=== PATIENT | female | born 1975 | race Caucasian/White ===

== ENCOUNTER 2017-03-17 20:14 | Emergency (ER) | payer BC ==
[2008-03-23 19:14] VITALS: BP 123/77
[~2017-03-17] VITALS: Ht 160 cm; Wt 56.8 kg
[~2017-03-17 20:14] MED LIST: AMOXICILLIN875 MG PO; BCP TD; PERCR 7.5 PO; TEGRETOL 1100 MG/TAB PO; TRIVORA-281 TAB PO; [UNRECOGNIZED DRUG - OTHER]
[2017-03-17 20:15] VITALS: TEMP 99.7
[2017-03-17 22:18] LABS: BASO # 0.1 (0.0-0.2); EOS # 0.5 (0.0-0.7); EOS % 5.1 % (0-4.0); GRAN # 4.7 (1.4-6.5); GRAN % 49.7 % (42.2-75.2); HEMATOCRIT 40.4 % (37.0-47.0); HEMOGLOBIN 13.9 g/dl (12.5-16.0); LYMPH # 3.6 (1.2-3.4); LYMPH % 38.2 % (20.0-51.0); MEAN CELL VOLUME 92 fl (80.0-100.0); MEAN CORPUSCULAR HEMOGLOBIN 32 pg (27.0-31.0); MEAN CORPUSCULAR HGB CONC 34 g/dl (33.0-37.0); MEAN PLATELET VOLUME 10.5 fl (7.4-10.4); MONO # 0.5 (0.1-0.6); MONO % 5.7 % (1.7-9.3); PLATELET COUNT 224 K/mm3 (130-400); RED BLOOD COUNT 4.38 M/mm3 (4.10-5.30); WHITE BLOOD COUNT 9.5 K/mm3 (4.8-10.8)
[2017-03-17 22:22] LABS: ADJUSTED CALCIUM 9.1 mg/dL (8.4-10.2); ALBUMIN 3.5 gm/dL (3.5-5.0); BILIRUBIN,TOTAL 0.5 mg/dL (0.0-1.0); CALCIUM 8.7 mg/dL (8.4-10.2); CREATININE, serum 0.62 mg/dL (0.52-1.25); POTASSIUM 3.8 mmol/L (3.4-5.0); TOTAL PROTEIN 6.1 gm/dL (6.4-8.2)
[2017-03-17 23:15] VITALS: BP 118/67; PULSE 69
== END 2017-03-17 23:17 | disposition home or self-care (01) ==
LOC: COL.ER 20:14
PROVIDERS: Nurse Practitioner
DX: G43.909 Migraine, unspecified, not intractable, without status migrainosus (principal); F41.0 Panic disorder [episodic paroxysmal anxiety]; F17.210 Nicotine dependence, cigarettes, uncomplicated
CPT/HCPCS: J1200; J1885; J2765

== ENCOUNTER → 2017-11-10 | Outpatient (CLI) | payer BC ==
[2004-12-14 01:25] VITALS: TEMP 97.4
== END ==
LOC: MHCPAIN 12:30
DX: G89.29 Other chronic pain (principal); M47.812 Spondylosis without myelopathy or radiculopathy, cervical region; M47.814 Spondylosis without myelopathy or radiculopathy, thoracic region; F17.210 Nicotine dependence, cigarettes, uncomplicated
CPT/HCPCS: G0463

== ENCOUNTER → 2018-02-27 | Outpatient (CLI) | payer BC | LOC: MC.RAD 07:40 | DX: Z12.31 Encounter for screening mammogram for malignant neoplasm of breast (principal) ==

== ENCOUNTER → 2019-03-26 | Outpatient (CLI) | payer SELFPAY | LOC: COL.RAD 08:52 | DX: G43.109 Migraine with aura, not intractable, without status migrainosus (principal); M47.812 Spondylosis without myelopathy or radiculopathy, cervical region ==

== ENCOUNTER → 2019-06-15 | Outpatient (CLI) | payer OTHER | LOC: MHCPAIN 10:17 | DX: G89.29 Other chronic pain (principal); M54.12 Radiculopathy, cervical region; M47.812 Spondylosis without myelopathy or radiculopathy, cervical region | CPT/HCPCS: G0463 ==

== ENCOUNTER → 2019-06-24 | Outpatient (CLI) | payer OTHER | LOC: MHCPAIN 13:35 | DX: M47.812 Spondylosis without myelopathy or radiculopathy, cervical region (principal); M54.12 Radiculopathy, cervical region | CPT/HCPCS: J1100; Q9967 ==

== ENCOUNTER 2019-07-01 11:00 | Outpatient (RCR) | payer OTHER | END 2019-08-12 | disposition home or self-care (01) | LOC: WSC | DX: G56.22 Lesion of ulnar nerve, left upper limb (principal) ==

== ENCOUNTER → 2019-07-05 | Outpatient (CLI) | payer OTHER | LOC: MHCPAIN 11:07 | DX: G89.29 Other chronic pain (principal); M54.12 Radiculopathy, cervical region; M47.812 Spondylosis without myelopathy or radiculopathy, cervical region | CPT/HCPCS: G0463 ==

== ENCOUNTER → 2019-07-28 | Outpatient (CLI) | payer OTHER | LOC: COL.RAD 11:18 | DX: M25.512 Pain in left shoulder (principal) ==

== ENCOUNTER → 2019-09-28 | Outpatient (CLI) | payer OTHER | LOC: COL.RAD 13:31 | DX: M25.512 Pain in left shoulder (principal) ==

== ENCOUNTER → 2019-12-13 | Outpatient (CLI) | payer OTHER | LOC: MHCPAIN 09:23 | DX: M25.512 Pain in left shoulder (principal); M47.22 Other spondylosis with radiculopathy, cervical region | CPT/HCPCS: G0463 ==

== ENCOUNTER 2020-02-07 08:26 | Emergency (ER) | payer OTHER ==
[2008-03-23 19:14] VITALS: BP 123/77
[~2020-02-07] VITALS: Ht 160 cm; Wt 68.2 kg
[2020-02-07 08:32] VITALS: TEMP 98.6
[2020-02-07 09:50] VITALS: BP 132/81; PULSE 94
== END 2020-02-07 09:50 | disposition home or self-care (01) ==
LOC: COL.ER 08:26
DX: S80.02XA Contusion of left knee, initial encounter (principal); W01.0XXA Fall on same level from slipping, tripping and stumbling without subsequent striking against object, initial encounter; Y92.009 Unspecified place in unspecified non-institutional (private) residence as the place of occurrence of the external cause

== ENCOUNTER → 2020-04-04 | Outpatient (CLI) | payer OTHER | LOC: MHCPAIN 08:05 | DX: M47.812 Spondylosis without myelopathy or radiculopathy, cervical region (principal); M54.2 Cervicalgia; M25.512 Pain in left shoulder; F17.210 Nicotine dependence, cigarettes, uncomplicated; G89.29 Other chronic pain | CPT/HCPCS: G0463 ==

== ENCOUNTER → 2020-10-04 | Outpatient (CLI) | payer OTHER | LOC: MHCPAIN 14:10 | DX: M47.812 Spondylosis without myelopathy or radiculopathy, cervical region (principal); M54.2 Cervicalgia; M25.512 Pain in left shoulder; F17.210 Nicotine dependence, cigarettes, uncomplicated | CPT/HCPCS: G0463 ==